=== PATIENT | male | born 1965 | race Two or more races ===

== ENCOUNTER 2017-03-08 05:20 | Day surgery (SDC) | payer OTHER ==
[~2017-03-08] VITALS: Ht 170.2 cm; Wt 66.6 kg
[2017-03-08 06:49] VITALS: Ht 170.2 cm; Wt 66.6 kg
[2017-03-08] MEDS ORDERED: LORATIDINE (06:55)
[2017-03-08] MEDS ORDERED: OMEPRAZOLE (06:55)
[2017-03-08] MEDS ORDERED: NORCO (06:55)
[2017-03-08] MEDS ORDERED: MELOXICAM (06:55)
[2017-03-08] MEDS ORDERED: PRAVASTATIN (06:55)
[2017-03-08] MEDS ORDERED: DICLOFENAC (06:55)
[2017-03-08 07:18] VITALS: BP 117/58; PULSE 54; RESP 21
[2017-03-08] MEDS ORDERED: MIDAZOLAM 1 MG/ML 2 ML INJ ONE (07:48)
[2017-03-08] MEDS ORDERED: FENTAnyl 50 MCG/ML VIAL ONE (07:49)
[2017-03-08 08:12] VITALS: BP 110/68; PULSE 70; RESP 12
--- NOTE | 2017-03-08 11:21 | GILP ---
DATE OF PROCEDURE: NAME OF PROCEDURES: Esophagogastroduodenoscopy and biopsy. SURGEON: Vee Yeung MD PREOPERATIVE DIAGNOSIS: Gastroesophageal reflux disease. POSTOPERATIVE DIAGNOSES: 1. Hiatal hernia. 2. Reflux esophagitis with erosions. 3. Polyps of the lower end of the esophagus and biopsies were taken for histopathology. 4. Gastritis with erosions. 5. Gastric mucosal biopsies were taken for Helicobacter pylori test. INDICATION FOR THE PROCEDURE: Mr. Kamran Alan is a 51-year-old male patient who had chronic h eartburn, not responding to therapy, so the patient was scheduled for endoscopic examination for fur ther evaluation. The procedure and possible complications were well explained to the patient. The patient understood and consented to the procedure. DESCRIPTION OF PROCEDURE: Under the influence of fentanyl and Versed, the gastroscope was carefully introduced into the esophagus and under direct vision, it was advanced to the stomach and through t he pylorus into the duodenal bulb and descending duodenum. FINDINGS: ESOPHAGUS: The patient had hiatal hernia and reflux esophagitis with erosions. He also had polyps at the lower end of the esophagus and biopsies were taken for histopathology. STOMACH: The patient had gastritis. Gastric mucosal biopsies were taken for H. pylori test. DUODENUM: Normal. He tolerated the procedure very well and there was no complication from the procedure. At the end o f the procedure, he was awake with stable vital signs and he was discharged home to the care of his family. IMPRESSION: Please see postoperative diagnoses. PLAN: Continue omeprazole twice a day. Await histopathology reports. Dictated By: VEE SANDS/SHAI Conf#: [id number] DID#: [id number]
== END 2017-03-08 10:51 | disposition home or self-care (01) ==
LOC: GIL 05:20
PROVIDERS: ATTEND Internal Medicine Gastroenterology
DX: K21.0 Gastro-esophageal reflux disease with esophagitis (principal); K44.9 Diaphragmatic hernia without obstruction or gangrene; K29.60 Other gastritis without bleeding
CPT/HCPCS: 43239; 87081; 88305; 88312; 88313; J2250; J3010; Z7610

== ENCOUNTER 2017-08-01 06:16 | Day surgery (SDC) | payer OTHER ==
[~2017-08-01] VITALS: Ht 170.2 cm; Wt 65.9 kg
[~2017-08-01 06:16] MED LIST: DICLOFENAC; LORATIDINE; MELOXICAM; NORCO; OMEPRAZOLE; PRAVASTATIN
[2017-08-01 06:55] VITALS: Ht 170.2 cm; Wt 65.9 kg
[2017-08-01 07:12] VITALS: BP 120/73; PULSE 53; RESP 16
--- NOTE | 2017-08-01 07:54 | OPPN ---
Date/Time of Note Date/Time of Note DATE: 08/01/17 TIME: 07:53 Operative Report Preoperative Diagnosis Screening Postoperative Diagnosis Sigmoid polyp was removed Operation/Procedure Performed Colonoscopy and polypectomy Surgeon see signature line assistant front end manager None Anesthesia: moderate sedation Estimated blood loss: none Transfusion Required none Specimen Sigmoid colon polyp Grafts/Implants none Complications none VEE BHARDWAJ MD Aug 01, 2017 07:54
[2017-08-01] MEDS ORDERED: FENTAnyl 50 MCG/ML VIAL ONE (07:59)
[2017-08-01] MEDS ORDERED: MIDAZOLAM 1 MG/ML 2 ML INJ ONE ×2 (07:59)
[2017-08-01 08:14] VITALS: BP 112/72; RESP 14
--- NOTE | 2017-08-01 08:55 | GILP ---
DATE OF PROCEDURE: 08/01/2017 NAME OF PROCEDURE: Colonoscopy and polypectomy. SURGEON: Stef Yeung MD. PREOPERATIVE DIAGNOSIS: Screening colonoscopy. POSTOPERATIVE DIAGNOSES: 1. Colonoscopy all the way to the cecum. 2. Sigmoid colon polyp was removed using the snare and electrocautery. 3. Internal hemorrhoids. INDICATIONS FOR PROCEDURE: The patient is a 52-year-old male patient who was scheduled for screening colonoscopy. The procedure and possible complications were well explained to the patient. He understood and consented to the procedure. DESCRIPTION OF PROCEDURE: Under the influence of fentanyl and Versed, the colonoscope was carefully introduced in the rectum. Under direct vision, it was advanced all the way to the cecum. FINDINGS: The patient had a sigmoid colon polyp and it was removed using the snare and electrocautery. He was noted to have internal hemorrhoids. He tolerated the procedure very well. There was no complication from the procedure. At the end of procedure, he was awake with stable vital signs and he was discharged home in the care of his family. IMPRESSION: 1. Colonoscopy all the way to the cecum. 2. Sigmoid colon polyp was removed using the snare and electrocautery. 3. Internal hemorrhoids. PLAN: 1. Await histopathology report. 2. Next screening colonoscopy in 5 years. Dictated By: MD WICHO Paulino/guicho/frankie /Document#: [id number]
== END 2017-08-01 11:25 | disposition home or self-care (01) ==
LOC: GIL 06:16
PROVIDERS: ATTEND Internal Medicine Gastroenterology
DX: Z12.11 Encounter for screening for malignant neoplasm of colon (principal); D12.5 Benign neoplasm of sigmoid colon; K64.8 Other hemorrhoids
CPT/HCPCS: 45385; 88305; J2250; J3010; Z7610